=== PATIENT | male | born 1990 | race Caucasian/White ===

== ENCOUNTER 2020-02-28 22:47 | Emergency (ER) | payer BC ==
[2020-02-28] MEDS ORDERED: Lidocaine 1% (PF) 30 ML VIAL ONE (23:33)
--- NOTE | 2020-02-28 23:51 | RAD ---
EXAM: 3 views of the left thumb HISTORY: Left thumb laceration with pain COMPARISON: None FINDINGS: There is lucency seen along the distal phalanx of the thumb and there may be a small fractu re fragment along the volar base at the interphalangeal joint. Mild soft tissue swelling is seen. No degenerative changes are present. No radiopaque foreign body is seen. IMPRESSION: Distal phalanx fracture of the thumb
[2020-02-29] MEDS ORDERED: Boostrix 0.5 ML (Tdap) VIAL ONE (00:09)
== END 2020-02-29 00:57 | disposition home or self-care (01) ==
LOC: ERS 22:47
DX: S62.522A Displaced fracture of distal phalanx of left thumb, initial encounter for closed fracture (principal); S61.012A Laceration without foreign body of left thumb without damage to nail, initial encounter; W26.8XXA Contact with other sharp object(s), not elsewhere classified, initial encounter
CPT/HCPCS: 12002; 90471; 90715; J2001

== ENCOUNTER 2020-03-14 10:45 | Emergency (ER) | payer BC | END 2020-03-14 10:59 | disposition home or self-care (01) | LOC: ERS 10:45 | DX: S61.012D Laceration without foreign body of left thumb without damage to nail, subsequent encounter (principal) ==